=== PATIENT | male | born 1965 | race Caucasian/White ===

== ENCOUNTER 2018-01-07 08:55 | Emergency (ER) | payer BC ==
[2018-01-07 09:07] VITALS: RESP 16
[2018-01-07] MEDS ORDERED: MAG HYDROX/AL HYDROX/SIMETH 30 ML, HYOSCYAMINE ELIXIR 10 ML, CIMETIDINE HCL 300 MG, LID... PO STA ×4 (09:24)
--- NOTE | 2018-01-07 09:30 | ED ---
ENT HPI - General Chief complaint: ENT Stated complaint: FB in throat Time Seen by Provider: 01/07/18 09:15 Source: patient, RN notes reviewed Mode of arrival: ambulatory Limitations: no limitations - History of Present Illness Initial comments: 52-year-old male present emergency Department chief complaint Fishbone stuck in his throat. Patient states she is eating perch last night and states that he felt that a bone got stuck. He is able to swallow and eat after. He states he just feels like it's in the right side of his throat. Patient has no shortness of breath denies any headache or dizziness. Patient offers no other complaints at this time. - Related Data Home Medications Medication Instructions Recorded Confirmed Cetirizine HCl [Zyrtec] 10 mg PO DAILY 01/07/18 01/07/18 Allergies Allergy/AdvReac Type Severity Reaction Status Date / Time No Known Allergies Allergy Verified 01/07/18 09:07 Review of Systems ROS Statement: Those systems with pertinent positive or pertinent negative responses have been documented in the HPI. ROS Other: All systems not noted in ROS Statement are negative. Past Medical History Past Medical History: No Reported History History of Any Multi-Drug Resistant Organisms: None Reported Past Surgical History: Orthopedic Surgery, Tonsillectomy Additional Past Surgical History / Comment(s): pyloric stenosis as an Past Psychological History: No Psychological Hx Reported Smoking Status: Never smoker Past Alcohol Use History: Occasional Past Drug Use History: None Reported General Exam Limitations: no limitations General appearance: alert, in no apparent distress Head exam: Present: atraumatic, normocephalic, normal inspection Eye exam: Present: normal appearance, PERRL, EOMI. Absent: scleral icterus, conjunctival injection, periorbital swelling ENT exam: Present: normal exam, mucous membranes moist, TM's normal bilaterally , normal external ear exam. Absent: normal oropharynx (Prior tonsillectomy no foreign body noted) Neck exam: Present: normal inspection, full ROM. Absent: tenderness, meningismus, lymphadenopathy Respiratory exam: Present: normal lung sounds bilaterally. Absent: respiratory distress, wheezes, rales, rhonchi, stridor Cardiovascular Exam: Present: regular rate, normal rhythm, normal heart sounds. Absent: systolic murmur, diastolic murmur, rubs, gallop, clicks Back exam: Absent: CVA tenderness (R), CVA tenderness (L) Skin exam: Present: warm, dry, intact, normal color. Absent: rash Course Vital Signs 01/07/18 09:03 Temperature 97.9 F Pulse Rate 71 Respiratory 16 Rate Blood Pressure 146/85 O2 Sat by Pulse 99 Oximetry Medical Decision Making - Medical Decision Making 52-year-old male presented emergency department to complaint of possible fishbone in throat. Patient is able to swallow fluids no difficulty. Patient is in no respiratory distress. Patient was given GI cocktail in the emergency department. Patient may have more irritation of his esophagus rather than actually foreign body. Patient will be given ENT on-call and return parameters were discussed. Disposition Clinical Impression: Esophageal abrasion, Food in esophagus causing other injury, initial encounter Disposition: HOME SELF-CARE Condition: Stable Instructions: Esophageal Foreign Body (ED) Additional Instructions: Please return to the Emergency Department if symptoms worsen or any other concerns. Is patient prescribed a controlled substance at d/c from ED?: No Referrals: Abdi Cottrell MD [Primary Care Provider] - 1-2 days Elder Kraus DO [Doctor of Osteopathic Medicine] - 1-2 days Vladimir Shah MD [STAFF PHYSICIAN] - 1-2 days Time of Disposition: 10:08
[2018-01-07 10:45] VITALS: BP 140/71; PULSE 70; TEMP 97.8
== END 2018-01-07 10:44 | disposition home or self-care (01) ==
LOC: EC 08:55
DX: S27.818A Other injury of esophagus (thoracic part), initial encounter (principal); T17.228A Food in pharynx causing other injury, initial encounter; Z79.899 Other long term (current) drug therapy
CPT/HCPCS: 99283